=== PATIENT | female | born 1975 | race African-American/Black ===

== ENCOUNTER 2025-07-21 18:29 | Emergency (ER) | payer BC, SELFPAY ==
[2025-07-21] MEDS ORDERED: Lidocaine 1% PF 5 ML VIAL ONE ×2 (19:02→19:17)
== END 2025-07-21 20:15 | disposition home or self-care (01) ==
LOC: ERS 18:29
DX: S91.312A Laceration without foreign body, left foot, initial encounter (principal); X58.XXXA Exposure to other specified factors, initial encounter
CPT/HCPCS: 12002; 99283